=== PATIENT | male | born 1955 | race Caucasian/White ===

== ENCOUNTER 2025-09-15 17:09 | Emergency (ER) | payer MEDICARE, OTHER ==
[2025-09-15] MEDS ORDERED: Metoclopramide HCl 10 MG (2 mL) VIAL ONE (17:43)
[2025-09-15] MEDS ORDERED: diphenhydrAMINE 50 MG/ML VIAL ONE (17:43)
[2025-09-15 18:32] LABS: ALT (SGPT) 15 U/L (Less than 45); AST (SGOT) 25 U/L (11-34); Albumin 4.0 g/dL (3.1-4.5); Alkaline Phosphatase 57 U/L (40-110); Anion Gap 14 mmol/L (10-20); BUN (Urea Nitrogen) 24 mg/dL (8.4-25.7); Bilirubin, Total 0.6 mg/dL (0.3-1.2); Calc. Creatinine Clearance 0 mL/min (70-130); Calcium 8.8 mg/dL (7.8-10.44); Carbon Dioxide 26 mmol/L (23-31); Chloride 108 mmol/L (98-107); Globulin 2.8 g/dL (2.4-3.5); Glucose 112 mg/dL (80-115); Hematocrit 36.9 % (42.0-52.0); Hemoglobin 12.6 g/dL (14.0-18.0); Mean Corpuscular Hemoglobin 27.6 pg (27.0-31.0); Mean Corpuscular Volume 80.9 fl (78.0-98.0); Platelet Count 236 10x3/uL (130-400); Potassium 3.8 mmol/L (3.5-5.1); Red Blood Cell (RBC) Count 4.57 mill/uL (4.70-6.10); Sodium 144 mmol/L (136-145); White Blood Cell (WBC) Count 5.8 10x3/uL (4.8-10.8)
[2025-09-15 18:36] LABS: Troponin I Less than 0.010 ng/mL (< 0.028)
[2025-09-15 18:44] LABS: MDiff Complete? YES
[2025-09-15] MEDS ORDERED: Ketorolac Tromethamine 30 MG (1 mL) VIAL ONE (19:09)
== END 2025-09-15 20:28 | disposition home or self-care (01) ==
LOC: NAV ERS 17:09
DX: R42 Dizziness and giddiness (principal); R51.9 Headache, unspecified; R29.700 NIHSS score 0; I10 Essential (primary) hypertension
CPT/HCPCS: 71045; 80053; 84484; 85025; 93005; J1200; J1885; J2765; J7030; 36415; 96365; 96375